=== PATIENT | female | born 1980 | race Caucasian/White ===

== ENCOUNTER 2017-05-28 11:39 | Emergency (ER) | payer OTHER ==
--- NOTE | 2017-05-28 13:15 | Cat Scan Report ---
CT HEAD WITHOUT CONTRAST: 05/28/17 11:39:00 CLINICAL: Electric shock, syncope and headache. TECHNIQUE: 2.5-mm noncontrast scans. COMPARISON:None FINDINGS: The ventricles and sulci are normal for age. Cavum septum pellucidum and cavum vergae which are developmental variants of midline structures. No abnormal density. No mass or mass effect. No hemorrhage, edema or extra-axial collection. The sinuses are clear. Normal orbits and soft tissues. The calvarium and skull base are intact. IMPRESSION: Normal study.
[2017-05-28 13:17] LABS: Basophils % (Auto) 0.4 % (0.0-1.8); Eosinophils % (Auto) 1.1 % (0.0-4.3); Hematocrit 42.8 % (30.3-42.9); Hemoglobin 14.7 gm/dl (10.1-14.3); Mean Corpuscular HGB Conc 34 % (30-34); Mean Corpuscular Hemoglobin 31 pg (28-32); Mean Corpuscular Volume 89 fl (79-97); Platelet Count 252 K/mm3 (140-440); Red Cell Distribution Width 12.7 % (13.2-15.2); White Blood Count 8.5 K/mm3 (4.5-11.0)
[2017-05-28 13:45] LABS: Anion Gap 20 mmol/L; BUN/Creatinine Ratio 16.66; Blood Urea Nitrogen 10 mg/dL (7-17); Calcium 8.9 mg/dL (8.4-10.2); Carbon Dioxide 20 mmol/L (22-30); Chloride 102.3 mmol/L (98-107); Glucose 90 mg/dL (65-100); Sodium 138 mmol/L (137-145)
[2017-05-28 13:47] LABS: Creatine Kinase MB 2.5 ng/mL (0.0-4.0)
[2017-05-28 13:48] LABS: Creatine Kinase 96 units/L (30-135)
--- NOTE | 2017-05-28 15:01 | Emergency Department Report ---
ED General Adult HPI - General Chief complaint: Medical Clearance Stated complaint: ELECTRICAL SHOCK Time Seen by Provider: 05/28/17 13:45 Source: patient Mode of arrival: Wheelchair Limitations: Language Barrier - History of Present Illness Initial comments: 36-year-old female with no sniff and past medical history presents to the hospital complains of left shock and syncope. Patient was stacking cocaine so at work, hit a [employer] extension cord and was shocked after making contact with her left hand. Coworkers state patient was screaming "the light, the light" and passed out for approximately 15 minutes. Upon awaking patient complained of headache, left arm pain, and paresthesias to bilateral fingers. Pain described as mild and rated 5/10 upon initial presentation. No chest pain reported. Severity scale (0 -10): 0 - Related Data Previous Rx's Medication Instructions Recorded Last Taken Type Ibuprofen [Motrin] 800 mg PO Q8HR PRN #30 tablet 05/28/17 Unknown Rx Allergies Allergy/AdvReac Type Severity Reaction Status Date / Time No Known Allergies Allergy Unverified 05/28/17 11:54 ED Review of Systems ROS: Stated complaint: ELECTRICAL SHOCK Other details as noted in HPI Comment: All other systems reviewed and negative Other: Constitutional: No fevers chills Eyes: No eye pain visual changes or discharge ENT: No ear pain or throat pain Neck: Denies pain Respiratory: Denies cough wheezing shortness of breath Cardiovascular: Denies chest pain, palpitations GI: Denies abdominal pain, nausea, vomiting, diarrhea : Denies dysuria Musculoskeletal: As per HPI Skin: Denies rash, lesions, erythema Neurologic: Denies headache, weakness Psychiatric: Denies suicidal ideation, hallucinations ED Past Medical Hx - Past Medical History Previous Medical History?: No - Surgical History Additional Surgical History: X 2 - Social History Smoking Status: Never Smoker Substance Use Type: None - Medications Home Medications: Home Medications Medication Instructions Recorded Confirmed Last Taken Type Ibuprofen [Motrin] 800 mg PO Q8HR PRN #30 tablet 05/28/17 Unknown Rx ED Physical Exam - General Limitations: Language Barrier - Other Other exam information: General: No limitations, patient is alert in no acute distress Head exam: Atraumatic, normocephalic Eyes exam: Normal appearance, pupils equal reactive to light, extraocular movements intact ENT: Moist mucous membrane, normal oropharynx Neck exam: Normal inspection, full range of motion, no meningismus nontender Respiratory exam: Clear to auscultation bilateral, no wheezes, rales, crackles Cardiovascular: Normal rate and rhythm, normal heart sounds Abdomen: Soft, nondistended, and nontender, with normal bowel sounds, no rebound, or guarding Extremity: Full range of motion normal inspection no deformity, no tenderness to palpation of the left arm Back: Normal Inspection, full range of motion, no tenderness Neurologic: Alert, oriented x3, cranial nerves intact, no motor or sensory deficit Psychiatric: normal affect, normal mood Skin: Warm, dry, intact, no burn lesion ED Course Vital Signs 05/28/17 05/28/17 05/28/17 12:00 13:38 13:46 Temperature 98.9 F Pulse Rate 73 55 L 61 Respiratory 18 19 27 H Rate Blood Pressure 126/76 Blood Pressure [Left] O2 Sat by Pulse 98 97 Oximetry 05/28/17 05/28/17 05/28/17 14:00 14:16 14:30 Temperature 98.4 F Pulse Rate 65 62 59 L Respiratory 21 20 20 Rate Blood Pressure Blood Pressure 125/74 [Left] O2 Sat by Pulse 98 98 96 Oximetry 05/28/17 05/28/17 05/28/17 14:46 15:00 15:16 Temperature Pulse Rate 60 64 57 L Respiratory 11 L 16 20 Rate Blood Pressure Blood Pressure [Left] O2 Sat by Pulse 99 95 96 Oximetry 05/28/17 05/28/17 05/28/17 15:30 16:32 16:39 Temperature Pulse Rate 66 61 Respiratory 29 H 15 Rate Blood Pressure Blood Pressure 124/77 [Left] O2 Sat by Pulse 98 100 Oximetry - Reevaluation(s) Reevaluation #1: 05/28/17 15:07 EKG now shows prolonged QT. Magnesium ordered. Toradol for pain ordered. NS ordered - Consultations Consultation #1: 05/28/17 17:08 Case discussed with indirect fire infantryman Dr. Arreguin. I informed him that during patient' s ED stay QT interval appears to be getting longer with repeat EKGs. Patient remains asymptomatic. Dr. Arreguin says that patient may go home but recommends follow-up on Tuesday. ED Medical Decision Making - Lab Data Result diagrams: 05/28/17 13:01 05/28/17 13:01 Lab Results 05/28/17 05/28/1717 Range/Units 13:01 13:01 13:01 WBC 8.5 (4.5-11.0) K/mm3 RBC 4.80 (3.65-5.03) M/mm3 Hgb 14.7 H (10.1-14.3) gm/dl Hct 42.8 (30.3-42.9) % MCV 89 (79-97) fl MCH 31 (28-32) pg MCHC 34 (30-34) % RDW 12.7 L (13.2-15.2) % Plt Count 252 (140-440) K/mm3 Lymph % (Auto) 12.1 L (13.4-35.0) % Dent % (Auto) 7.0 (0.0-7.3) % Eos % (Auto) 1.1 (0.0-4.3) % Baso % (Auto) 0.4 (0.0-1.8) % Lymph # 1.0 L (1.2-5.4) K/mm3 Dent # 0.6 (0.0-0.8) K/mm3 Eos # 0.1 (0.0-0.4) K/mm3 Baso # 0.0 (0.0-0.1) K/mm3 Seg Neutrophils % 79.4 H (40.0-70.0) % Seg Neutrophils # 6.7 (1.8-7.7) K/mm3 Sodium 138 (137-145) mmol/L Potassium 4.0 (3.6-5.0) mmol/L Chloride 102.3 (98-107) mmol/L Carbon Dioxide 20 L (22-30) mmol/L Anion Gap 20 mmol/L BUN 10 (7-17) mg/dL Creatinine 0.6 L (0.7-1.2) mg/dL Estimated GFR > 60 ml/min BUN/Creatinine Ratio 16.66 % Glucose 90 (65-100) mg/dL Calcium 8.9 (8.4-10.2) mg/dL Total Creatine Kinase 96 (30-135) units/L CK-MB (CK-2) 2.5 (0.0-4.0) ng/mL CK-MB (CK-2) Rel Index 2.6 (0-4) Troponin T < 0.010 (0.00-0.029) ng/mL HCG, Qual (Negative) 05/28/17 Range/Units 13:01 WBC (4.5-11.0) K/mm3 RBC (3.65-5.03) M/mm3 Hgb (10.1-14.3) gm/dl Hct (30.3-42.9) % MCV (79-97) fl MCH (28-32) pg MCHC (30-34) % RDW (13.2-15.2) % Plt Count (140-440) K/mm3 Lymph % (Auto) (13.4-35.0) % Dent % (Auto) (0.0-7.3) % Eos % (Auto) (0.0-4.3) % Baso % (Auto) (0.0-1.8) % Lymph # (1.2-5.4) K/mm3 Dent # (0.0-0.8) K/mm3 Eos # (0.0-0.4) K/mm3 Baso # (0.0-0.1) K/mm3 Seg Neutrophils % (40.0-70.0) % Seg Neutrophils # (1.8-7.7) K/mm3 Sodium (137-145) mmol/L Potassium (3.6-5.0) mmol/L Chloride (98-107) mmol/L Carbon Dioxide (22-30) mmol/L Anion Gap mmol/L BUN (7-17) mg/dL Creatinine (0.7-1.2) mg/dL Estimated GFR ml/min BUN/Creatinine Ratio % Glucose (65-100) mg/dL Calcium (8.4-10.2) mg/dL Total Creatine Kinase (30-135) units/L CK-MB (CK-2) (0.0-4.0) ng/mL CK-MB (CK-2) Rel Index (0-4) Troponin T (0.00-0.029) ng/mL HCG, Qual Negative (Negative) - EKG Data -: EKG Interpreted by Me (sinus rate 62m qtc 442) - EKG Data 05/28/17 15:06 Repeat EKG at 14:51 shows sinus rhythm rate of 60 with QTC now 460 - Radiology Data Radiology results: report reviewed - Medical Decision Making Patient symptoms have improved with ED treatment of Toradol and normal saline. No signs of ICH, arrhythmia, electrolyte abnormality, or rhabdomyolysis at this time. - Differential Diagnosis rhabdomyolysis, electric shock, arrhythmia, ICH Critical Care Time: No Critical care attestation.: If time is entered above; I have spent that time in minutes in the direct care of this critically ill patient, excluding procedure time. ED Disposition Clinical Impression: Electric shock, Prolonged QT interval Disposition: TO HOME OR SELFCARE Is pt being admited?: No Does the pt Need Aspirin: No Condition: Stable Instructions: Electrical Ricardo in Adults (ED) Additional Instructions: Take the medication as prescribed. Return if symptoms worsen. Follow-up with the indirect fire infantryman on Tuesday. Follow with the primary care doctor or clinic provided. Prescriptions: Ibuprofen [Motrin] 800 mg PO Q8HR PRN #30 tablet PRN Reason: Pain Referrals: [facility] [Provider Group] - 3-5 Days DIANA ARREGUIN MD [Staff Physician] - 3-5 Days (cardiology) WALE LADD MD [Staff Physician] - 3-5 Days (primary) Time of Disposition: 17:19
[2017-05-28] MEDS ORDERED: TORADOL IV ONE (15:05)
[2017-05-28] MEDS ORDERED: NACL 0.9% 1000 ML 1,000 ML IV ONE (15:06)
[2017-05-28 17:58] VITALS: BP 118/70
== END 2017-05-28 17:30 | disposition home or self-care (01) ==
LOC: ED 11:39
DX: T75.4XXA Electrocution, initial encounter (principal); I45.81 Long QT syndrome
CPT/HCPCS: 36415; 70450; 80048; 82550; 82553; 83735; 84484; 84703; 85025; 93005; 93010; 96361; 96374; 99284; J1885; J7030